=== PATIENT | male | born 1990 | race African-American/Black ===

== ENCOUNTER 2019-01-16 21:15 | Emergency (ER) | payer OTHER ==
[~2019-01-16] VITALS: Ht 190.5 cm; Wt 116.0 kg
[2019-01-16 21:29] VITALS: BP 141/22
--- NOTE | 2019-01-16 21:30 | NUR ---
[employer] OFFICERS AT BEDSIDE. PT COMBATIVE. SECURITY CALLED AND STANDING BY
--- NOTE | 2019-01-16 22:40 | NUR ---
UNABLE TO OBTAIN FURTHER VITALS, PT UNCOOPERATIVE AND REFUSING.
[2019-01-16 22:41] LABS: CREATINE KINASE 517 U/L (39-308)
--- NOTE | 2019-01-16 23:00 | NUR ---
PT REFUSED TO PROVIDE UA. MADE AWARE. WILL CONTINUE TO MONITOR.
[2019-01-16 23:15] LABS: ALANINE AMINOTRANSFERASE 35 U/L (12-78); ALBUMIN 3.9 G/DL (3.4-5.0); ALBUMIN/GLOBULIN RATIO 0.9 (1.1-1.5); ALKALINE PHOSPHATASE 92 IU/L (46-116); ANION GAP 7 (8-16); ASPARTATE AMINO TRANSFERASE 33 U/L (10-37); BILIRUBIN,TOTAL 0.8 MG/DL (0.1-1.0); BLOOD UREA NITROGEN 8 MG/DL (7-18); BUN/CREATININE RATIO 6.6 (5.4-32.0); CALCIUM 10.7 MG/DL (8.5-10.1); CHLORIDE 106 MMOL/L (99-107); CREATININE 1.22 MG/DL (0.60-1.10); ETHANOL < 0.010 GM/DL (0.0-0.010); GLUCOSE 88 MG/DL (70-104); LIPASE 108 U/L (73-393); MAGNESIUM 1.6 MG/DL (1.5-2.4); POTASSIUM 3.5 MMOL/L (3.5-5.1); SODIUM 141 MMOL/L (135-145); TOTAL CARBON DIOXIDE 28.2 MMOL/L (24-32); TOTAL PROTEIN 8.3 G/DL (6.4-8.2); eGFR 72 ML/MIN
[2019-01-16 23:16] LABS: BASOPHILS % (AUTO) 0.2 % (0-1); EOSINOPHILS # (AUTO) 0.1 X10'3 (0-0.9); EOSINOPHILS % (AUTO) 0.9 % (0-6); HEMATOCRIT 46.1 % (42.0-52.0); HEMOGLOBIN 15.9 g/dl (14.0-17.9); LYMPHOCYTES # (AUTO) 1.3 X10'3 (1.1-4.8); LYMPHOCYTES % (AUTO) 10.5 % (21-51); MEAN CORPUSCULAR HEMOGLOBIN 31.8 PG (27.0-31.0); MEAN CORPUSCULAR HGB CONC 34.5 g/dL (33.0-36.5); MEAN CORPUSCULAR VOLUME 92.1 FL (78-98); MEAN PLATELET VOLUME 8.1 FL (7.4-10.4); MONOCYTES % (AUTO) 7.7 % (2-12); NEUTROPHILS # (AUTO) 10.4 X10'3 (1.8-7.7); NEUTROPHILS % (AUTO) 80.7 % (42-75); PLATELET COUNT 269 X10'3 (140-440); RED CELL DISTRIBUTION WIDTH 14.2 % (11.5-14.5); WHITE BLOOD COUNT 12.9 X10'3 (4.5-11.0)
== END 2019-01-16 23:07 ==
LOC: ER 21:15
DX: S31.131A Puncture wound of abdominal wall without foreign body, left upper quadrant without penetration into peritoneal cavity, initial encounter (principal); S30.811A Abrasion of abdominal wall, initial encounter; S20.411A Abrasion of right back wall of thorax, initial encounter; X58.XXXA Exposure to other specified factors, initial encounter; Y93.89 Activity, other specified; Y92.89 Other specified places as the place of occurrence of the external cause; Y99.9 Unspecified external cause status
CPT/HCPCS: 36415; 80053; 80320; 82550; 83690; 83735; 83874; 85025; 99283